=== PATIENT | male | born 1990 | race African-American/Black ===

== ENCOUNTER 2016-08-31 15:28 | Emergency (ER) | payer OTHER ==
[~2016-08-31 15:28] MED LIST: ADVA100A INH; SULF1TAB47 PO
[2016-08-31 15:29] VITALS: BP 137/63; PULSE 84; RESP 15; TEMP 98.2; O2SAT 99
--- NOTE | 2016-08-31 15:43 | PD ---
Physical Exam Time Seen by Provider: 15:42 Narrative 26 y/o male here for evaluation of facial rash for 3 months. Vital signs reviewed. Seen at triage desk. Awaiting bed placement. Data Data Last Documented VS Vital Signs Date Time Temp Pulse Resp B/P Pulse Ox O2 Delivery O2 Flow Rate FiO2 08/31/16 15:29 98.2 84 15 137/63 99 MDM Medical Record Reviewed: Yes Supervised Visit with [id number]: No Leonard Payne Aug 31, 2016 15:43
[2016-08-31] MEDS ORDERED: NYST15T TOPICAL (17:16)
--- NOTE | 2016-08-31 17:17 | PD ---
HPI Chief Complaint: Skin Problem Time Seen by Provider: 17:15 Travel History International Travel<30 days: No Contact w/Intl Traveler<30days: No Traveled to known affect area: No History of Present Illness HPI 26-year-old male presents to emergency Department with complaint of itchy rash to bilateral groin area times one year with development of rash behind bilateral ears 3 months. Denies fever, vomiting. Denies new lotions, soaps, detergents, perfumes, medications, foods. Has tried hydrocortisone cream, Lotrimin, and other [id number] topical ointments with no relief of symptoms. Has no known allergies. Has no other medical complaints. No other modifying factors or associated signs and symptoms. PFSH Past Medical History Asthma: Yes Diminished Hearing: No Influenza Vaccination: No Past Surgical History Surgical History: No Previous Surgery Social History Alcohol Use: Yes (OCCASIONALLY) Tobacco Use: No Substance Use: No Allergies-Medications (Allergen,Severity, Reaction): Coded Allergies: No Known Allergies (Verified , 08/31/16) Reported Meds & Prescriptions Reported Meds & Active Scripts Active Nystatin Topical (Nystatin) 100,000 unit/gm Cream 1 Applic TOPICAL Q6HR Review of Systems Except as stated in HPI: all other systems reviewed are Neg Physical Exam Narrative GENERAL: Well-nourished, well-developed male patient, in no acute distress SKIN: Warm and dry. Bilateral groin area and behind bilateral ears with erythemic, dry appearing rash. No signs of infection. HEAD: Atraumatic. Normocephalic. EYES: Pupils equal and round. No scleral icterus. No injection or drainage. ENT: Mucosa pink and moist. Airway patent. NECK: Trachea midline. CARDIOVASCULAR: Regular rate. RESPIRATORY: No accessory muscle use. GASTROINTESTINAL: Rounded. MUSCULOSKELETAL: No obvious deformities. No clubbing. No cyanosis. No edema. NEUROLOGICAL: Awake and alert. Oriented 3. No obvious cranial nerve deficits. Motor grossly within normal limits. Normal speech. PSYCHIATRIC: Appropriate mood and affect; insight and judgment normal. Data Data Last Documented VS Vital Signs Date Time Temp Pulse Resp B/P Pulse Ox O2 Delivery O2 Flow Rate FiO2 08/31/16 15:29 98.2 84 15 137/63 99 MDM Medical Decision Making Medical Screen Exam Complete: Yes Emergency Medical Condition: Yes Medical Record Reviewed: Yes Differential Diagnosis Psoriasis, yeast infection, eczema, dermatitis, nonspecific rash and skin eruption Narrative Course 26-year-old male with rash to bilateral groin area and behind bilateral ears that appears to be possibly consistent with yeast infection. Patient afebrile nontoxic appearing. He denies fever, vomiting. Nystatin cream prescribed for home. Instructed patient to follow up with histology assistant. Patient verbalizes understanding and agreement with treatment plan. Patient is medically cleared and stable for discharge. Discussed reasons to return to the emergency department. Instructed patient to follow up with primary care provider. Patient agrees with treatment plan. The patients vital signs are stable and the patient is stable for outpatient follow-up and treatment. Patient discharged home, stable and in no acute distress. Diagnosis Primary Impression: Yeast infection of the skin Referrals: Emergency Medicine Specialist Primary Care Physician Patient Instructions: General Instructions, Skin Yeast Infection (ED) Departure Forms: Tests/Procedures, Work Release Enter return to work date: Sep 01, 2016 Additional Instructions: Apply nystatin cream as prescribed Keep area clean and dry Follow-up with histology assistant next follow-up with primary care provider Return to the emergency department immediately with worsening of symptoms Med/Other Pt SpecificInfo: Prescription(s) given Scripts Nystatin Topical 100,000 unit/gm Cream1 Applic TOPICAL Q6HR #30 GM Ref 1 Prov:Deann Vázquez 08/31/16 Disposition: 01 DISCHARGE HOME Condition: Stable Deann Vázquez Aug 31, 2016 17:17
== END 2016-08-31 17:44 | disposition home or self-care (01) ==
LOC: NEPK 15:28
DX: B37.2 Candidiasis of skin and nail (principal)
CPT/HCPCS: 99283